=== PATIENT | male | born 1975 | race Caucasian/White ===

== ENCOUNTER 2020-07-05 | Observation (INO) ==
[2020-07-05 00:19] LABS: Basophils % 0.4 % (0.0-0.8); Eosinophils # 0.1 10*3/uL (0.0-0.87); Eosinophils % 1.2 % (0.00-10.9); Hematocrit 42.1 VOL% (42.0-52.0); Hemoglobin 14.4 GM/DL (14.0-18.0); Immature Granulocytes % 0.6 %; Immature Granulocytes Absolute 0.07 #; Lymphocytes # 3.1 10*3/uL (1.4-4.0); Lymphocytes % 28.3 % (21.2-54.2); Mean Corpuscular HGB Conc 34.2 GM/DL (32-36); Mean Corpuscular Volume 87.7 FL (87-102); Mean Platelet Volume 9.6 FL (9.6-12.0); Monocytes % 9.9 % (1.7-12.7); Neutrophils % 59.6 % (38.7-73.9); Platelet Count 311 T/CUMM (130-400); Red Cell Distribution Width 13.4 % (9.3-17.3); White Blood Count 10.9 T/CUMM (4-12)
[2020-07-05] MEDS ORDERED: NITROGLYCERIN 2% OINT 1 INCH/GM PACK TOP STA (00:39)
[2020-07-05] MEDS ORDERED: ENOXAPARIN 100 MG/ML SYRINGE SUBCUT STA (00:39)
[2020-07-05] MEDS ORDERED: MORPHINE 4 MG/1 ML VIAL IV STA (00:39)
[2020-07-05] MEDS ORDERED: ONDANSETRON 4 MG/2 ML VIAL IV STA (00:39)
[2020-07-05] MEDS ORDERED: ASPIRIN 325 MG TABLET PO STA (00:39)
[2020-07-05] MEDS ORDERED: METOPROLOL TARTRATE 25 MG TABLET PO STA (00:39)
[2020-07-05] MEDS ORDERED: ALUM/MAG/SIMETH/LIDO VISC 1:1 30 ML BOTTLE PO STA (00:39)
[2020-07-05 00:40] LABS: Albumin 3.7 G/DL (3.4-5.0); Bilirubin,Total 0.5 MG/DL (0.2-1.0); Calcium 8.9 MG/DL (8.5-10.1); Osmolality,Calculated 284.3 MOS/KG (273-304); Potassium 3.7 MMOL/L (3.5-5.1); Total Protein 7.1 G/DL (6.4-8.3)
[2020-07-05 01:09] LABS: INR 0.9; PT Patient Result 10.1 SECS (9.8-11.9)
[2020-07-05] MEDS ORDERED: ACETAMINOPHEN 500 MG TABLET PO ONE (03:34)
[2020-07-05 04:12] VITALS: BP 110/77
[2020-07-05] MEDS ORDERED: ONDANSETRON 4 MG/2 ML VIAL IV PRN (04:50)
[2020-07-05] MEDS ORDERED: MORPHINE 4 MG/1 ML VIAL IV PRN (04:50)
[2020-07-05] MEDS ORDERED: ACETAMINOPHEN 325 MG TABLET PO PRN (04:50)
[2020-07-05] MEDS ORDERED: SODIUM CHLORIDE 0.9% 1,000 ML IV SCH (04:50)
[2020-07-05] MEDS ORDERED: NITROGLYCERIN 2% OINT 1 INCH/GM PACK TOP SCH (06:00)
[2020-07-05 07:34] LABS: Albumin 3.6 G/DL (3.4-5.0); Bilirubin,Total 0.6 MG/DL (0.2-1.0); Calcium 8.7 MG/DL (8.5-10.1); Osmolality,Calculated 281.4 MOS/KG (273-304); Potassium 4.2 MMOL/L (3.5-5.1); Risk Ratio 3.13; Total Protein 6.8 G/DL (6.4-8.3); VLDL CHOLESTEROL 17.8 MG/DL
[2020-07-05 08:03] LABS: Basophils % 0.6 % (0.0-0.8); Eosinophils # 0.1 10*3/uL (0.0-0.87); Eosinophils % 1.8 % (0.00-10.9); Immature Granulocytes % 0.6 %; Immature Granulocytes Absolute 0.04 #; Lymphocytes # 2.5 10*3/uL (1.4-4.0); Lymphocytes % 34.5 % (21.2-54.2); Mean Corpuscular HGB Conc 33.3 GM/DL (32-36); Mean Corpuscular Volume 89.4 FL (87-102); Mean Platelet Volume 9.6 FL (9.6-12.0); Monocytes % 9.9 % (1.7-12.7); Neutrophils % 52.6 % (38.7-73.9); Platelet Count 285 T/CUMM (130-400); Red Cell Distribution Width 13.6 % (9.3-17.3); White Blood Count 7.1 T/CUMM (4-12)
[2020-07-05] MEDS ORDERED: amLODIPine 2.5 MG TABLET PO SCH (09:00)
[2020-07-05] MEDS ORDERED: DOCUSATE SODIUM 100 MG CAPSULE PO SCH (09:00)
[2020-07-05] MEDS ORDERED: ENOXAPARIN 100 MG/ML SYRINGE SUBCUT SCH (09:00)
[2020-07-05] MEDS ORDERED: PANTOPRAZOLE 40 MG TABLET PO SCH (09:00)
[2020-07-05] MEDS ORDERED: ASPIRIN EC 325 MG TABLET PO SCH (09:00)
== END 2020-07-05 13:36 | disposition home or self-care (01) ==
LOC: N.ED → N.EDINP
PROVIDERS: ADMIT Family Medicine; ATTEND Family Medicine